=== PATIENT | male | born 1940 | race Caucasian/White ===

== ENCOUNTER 2022-05-25 20:51 | Emergency (ER) | payer MEDICARE, OTHER | END 2022-05-25 21:50 | disposition home or self-care (01) | LOC: ER1 20:51 | DX: S51.811A Laceration without foreign body of right forearm, initial encounter (principal); I10 Essential (primary) hypertension; W19.XXXA Unspecified fall, initial encounter | CPT/HCPCS: 99282 ==

== ENCOUNTER 2022-06-16 16:27 | Emergency (ER) | payer MEDICARE, OTHER ==
[2022-06-16 17:04] LABS: HEMOGLOBIN 15.5 gm/dl (14.0-17.5); RED BLOOD COUNT 4.83 M/UL (4.20-5.50); WHITE BLOOD COUNT 10.5 K/UL (4.5-11.0)
[2022-06-16 17:33] LABS: BUN/CREATININE RATIO 16 (0-10)
== END 2022-06-16 20:00 | disposition home or self-care (01) ==
LOC: ER1 16:27
PROVIDERS: Emergency Medicine
DX: N17.9 Acute kidney failure, unspecified (principal); I12.9 Hypertensive chronic kidney disease with stage 1 through stage 4 chronic kidney disease, or unspecified chronic kidney disease; N18.9 Chronic kidney disease, unspecified; E07.9 Disorder of thyroid, unspecified; R55 Syncope and collapse; Z20.822 Contact with and (suspected) exposure to COVID-19
CPT/HCPCS: 70450; 71045; 80053; 81001; 82550; 82553; 83880; 84439; 84443; 84484; 85025; 87040; 93005; 99284; U0002